=== PATIENT | male | born 1990 | race Caucasian/White ===

== ENCOUNTER 2016-10-19 13:16 | Emergency (ER) | payer OTHER ==
[~2016-10-19] VITALS: Ht 180.3 cm; Wt 105.8 kg
[~2016-10-19 13:16] MED LIST: ATARAX,VISTARIL25 MG PO; ZOFRAN4 MG PO
[2016-10-19 13:33] VITALS: BP 150/93
== END 2016-10-19 16:39 | disposition left against medical advice (07) ==
LOC: EME 13:16
DX: R07.9 Chest pain, unspecified (principal); R06.00 Dyspnea, unspecified; Z53.21 Procedure and treatment not carried out due to patient leaving prior to being seen by health care provider
CPT/HCPCS: 93005

== ENCOUNTER 2016-11-17 04:44 | Emergency (ER) | payer SELFPAY ==
[~2016-11-17] VITALS: Ht 180.3 cm; Wt 110.8 kg
[2016-11-17 05:24] LABS: HEMATOCRIT 47.6 % (38.0-50.0); MCH 29.1 PG (29.0-34.0); MCHC 33.8 G/DL (30.0-36.0); MCV 85.9 FL (86-99); MEAN PLAT.VOLUME 8.8 uM^3 (9.0-12.4); PLATELET COUNT 278 K/uL (156-360); RBC DIS.WIDTH-CV 11.5 % (11.8-14.6); RBC DIS.WIDTH-SD 36.2 % (39-53); RED BLOOD COUNT 5.54 M/uL (4.00-5.50); WHITE BLOOD COUNT 11.7 K/uL (4.1-10.2)
[2016-11-17] MEDS ORDERED: ZOFRAN4 MG PO (05:27)
[2016-11-17] MEDS ORDERED: NORCO 5/3251 TABLET PO (05:27)
[2016-11-17 05:50] LABS: CHLORIDE 103 mEq/L (99-109); POTASSIUM 3.7 mEq/L (3.7-5.4); SODIUM 140 mEq/L (136-147)
[2016-11-17 05:52] LABS: GLUCOSE 110 mg/dL (70-99)
[2016-11-17 05:53] LABS: ANION GAP 11 MEQ/L (2-14)
[2016-11-17 05:54] LABS: TOTAL BILIRUBIN 1.3 mg/dL (0.0-1.0)
[2016-11-17 05:55] LABS: ALKALINE PHOSPHATASE 71 IU/L (3-129)
[2016-11-17 05:56] LABS: GFR ESTIMATE (CALCULATED) > 59 mL/min/
[2016-11-17 05:57] LABS: UREA NITROGEN (BUN) 18 mg/dL (9-23)
[2016-11-17 05:59] LABS: LIPASE 44 U/L (1.0-51.0)
[2016-11-17 06:15] VITALS: BP 130/80
== END 2016-11-17 06:16 | disposition home or self-care (01) ==
LOC: EME 04:44
PROVIDERS: Physician Assistant
DX: K80.20 Calculus of gallbladder without cholecystitis without obstruction (principal); Z87.891 Personal history of nicotine dependence
CPT/HCPCS: 74176; 80053; 81003; 83690; 85027; 99281; 99284; J2270

== ENCOUNTER 2016-12-17 10:25 | Emergency (ER) | payer OTHER ==
[~2016-12-17] VITALS: Ht 180.3 cm; Wt 107.8 kg
[~2016-12-17 10:25] MED LIST changes: +NORCO 5/3251 TABLET PO
[2016-12-17] MEDS ORDERED: TYLENOL REGULA325 MG PO (11:35)
[2016-12-17] MEDS ORDERED: NAPROSYN500 MG PO (12:44)
[2016-12-17 13:03] VITALS: BP 135/78
== END 2016-12-17 13:04 | disposition home or self-care (01) ==
LOC: EME 10:25
DX: R51 Headache (principal); R07.9 Chest pain, unspecified; F43.9 Reaction to severe stress, unspecified; R00.0 Tachycardia, unspecified; Z87.891 Personal history of nicotine dependence
CPT/HCPCS: 93005; 99281; 99284; J1885

== ENCOUNTER 2016-12-19 07:00 | Emergency (ER) | payer OTHER ==
[~2016-12-19] VITALS: Ht 180.3 cm; Wt 107.8 kg
[~2016-12-19 07:00] MED LIST changes: +NAPROSYN500 MG PO; +TYLENOL REGULA325 MG PO
[2016-12-19 08:26] VITALS: BP 126/82
== END 2016-12-19 08:29 | disposition home or self-care (01) ==
LOC: EME 07:00
DX: G43.909 Migraine, unspecified, not intractable, without status migrainosus (principal); G44.209 Tension-type headache, unspecified, not intractable; Z87.891 Personal history of nicotine dependence
CPT/HCPCS: 99281; 99285; J1200; J1885; J2765

== ENCOUNTER 2016-12-20 02:22 | Emergency (ER) | payer OTHER ==
[~2016-12-20] VITALS: Ht 180.3 cm; Wt 108.8 kg
[2016-12-20 02:43] LABS: HEMATOCRIT 45.4 % (38.0-50.0); MCH 28.9 PG (29.0-34.0); MCHC 33.7 G/DL (30.0-36.0); MCV 85.7 FL (86-99); MEAN PLAT.VOLUME 8.6 uM^3 (9.0-12.4); PLATELET COUNT 248 K/uL (156-360); RBC DIS.WIDTH-CV 11.6 % (11.8-14.6); RBC DIS.WIDTH-SD 36.4 % (39-53); WHITE BLOOD COUNT 9.3 K/uL (4.1-10.2)
[2016-12-20 02:53] LABS: CHLORIDE 110 mEq/L (99-109); POTASSIUM 3.8 mEq/L (3.7-5.4); SODIUM 142 mEq/L (136-147)
[2016-12-20 02:56] LABS: GLUCOSE 118 mg/dL (70-99)
[2016-12-20 02:57] LABS: ANION GAP 9 MEQ/L (2-14)
[2016-12-20 02:58] LABS: TOTAL BILIRUBIN 1.8 mg/dL (0.0-1.0)
[2016-12-20 02:59] LABS: ALKALINE PHOSPHATASE 58 IU/L (3-129); GFR ESTIMATE (CALCULATED) > 59 mL/min/
[2016-12-20 03:00] LABS: UREA NITROGEN (BUN) 13 mg/dL (9-23)
[2016-12-20 03:08] LABS: ADD MIUA? YES; BILIRUBIN NEGATIVE; BLOOD SMALL; COLOR YELLOW ((YELLOW)); GLUCOSE (STRIP) NEGATIVE; KETONES NEGATIVE; LEUKOCYTES TRACE; NITRITE NEGATIVE; PROTEIN (STRIP) 100; SPECIFIC GRAVITY 1.006 (1.000-1.030); UROBILINOGEN 0.2 MG/DL (0.2-1.0)
[2016-12-20 03:22] LABS: BACTERIA NONE SEEN /HPF; EPITHELIAL CELLS RARE /HPF; MUCUS TRACE /LPF; UCUL ADDED? NO
[2016-12-20 03:24] LABS: LIPASE 35 U/L (1.0-51.0)
[2016-12-20 05:20] VITALS: BP 138/89
== END 2016-12-20 05:21 | disposition home or self-care (01) ==
LOC: EME 02:22
DX: R10.13 Epigastric pain (principal); K80.20 Calculus of gallbladder without cholecystitis without obstruction; Z87.891 Personal history of nicotine dependence
CPT/HCPCS: 76705; 80053; 81003; 83690; 85027; 99281; 99285

== ENCOUNTER 2016-12-22 11:02 | Emergency (ER) | payer OTHER ==
[~2016-12-22] VITALS: Ht 180.3 cm; Wt 109.4 kg
[2016-12-22] MEDS ORDERED: ATIVAN0.5 MG PO (15:17)
[2016-12-22 15:32] VITALS: BP 155/82
== END 2016-12-22 15:35 | disposition home or self-care (01) ==
LOC: EME 11:02
DX: F41.0 Panic disorder [episodic paroxysmal anxiety] (principal); F43.10 Post-traumatic stress disorder, unspecified; F31.9 Bipolar disorder, unspecified; R51 Headache; R03.0 Elevated blood-pressure reading, without diagnosis of hypertension; K80.20 Calculus of gallbladder without cholecystitis without obstruction; Z87.891 Personal history of nicotine dependence
CPT/HCPCS: 90832; 93005; 99281; 99284

== ENCOUNTER 2016-12-25 16:18 | Emergency (ER) | payer OTHER ==
[~2016-12-25] VITALS: Ht 180.3 cm; Wt 108.2 kg
[~2016-12-25 16:18] MED LIST changes: +ATIVAN0.5 MG PO
[2016-12-25 17:47] LABS: MCH 29.1 PG (29.0-34.0); MCHC 34.6 G/DL (30.0-36.0); MCV 84.2 FL (86-99); MEAN PLAT.VOLUME 8.6 uM^3 (9.0-12.4); PLATELET COUNT 295 K/uL (156-360); RBC DIS.WIDTH-CV 11.5 % (11.8-14.6); RBC DIS.WIDTH-SD 34.8 % (39-53); RED BLOOD COUNT 5.46 M/uL (4.00-5.50); WHITE BLOOD COUNT 8.6 K/uL (4.1-10.2)
[2016-12-25 18:03] LABS: CHLORIDE 104 mEq/L (99-109); MAGNESIUM 2.1 mg/dL (1.3-2.7); POTASSIUM 3.7 mEq/L (3.7-5.4); SODIUM 142 mEq/L (136-147)
[2016-12-25 18:04] LABS: GLUCOSE 89 mg/dL (70-99)
[2016-12-25 18:06] LABS: ANION GAP 14 MEQ/L (2-14)
[2016-12-25 18:08] LABS: GFR ESTIMATE (CALCULATED) 49 mL/min/
[2016-12-25 18:09] LABS: UREA NITROGEN (BUN) 17 mg/dL (9-23)
[2016-12-25 18:11] LABS: TROP-I INTERPRETATION NEGATIVE; TROPONIN-I < 0.01 ng/mL (0.0-0.30)
[2016-12-25 20:04] LABS: ADD MIUA? YES; BILIRUBIN NEGATIVE; BLOOD NEGATIVE; COLOR YELLOW ((YELLOW)); GLUCOSE (STRIP) NEGATIVE; KETONES NEGATIVE; LEUKOCYTES SMALL; NITRITE NEGATIVE; PROTEIN (STRIP) NEGATIVE; SPECIFIC GRAVITY 1.015 (1.000-1.030); UROBILINOGEN 0.2 MG/DL (0.2-1.0)
[2016-12-25 20:24] LABS: AMPHETAMINE NEGATIVE (500 ng/mL); BARBITURATES NEGATIVE (200 ng/mL); BENZODIAZEPINES PRESUMPTIVE POSITIVE (150 ng/mL); COCAINE NEGATIVE (150 ng/mL); INTERNAL CONTROLS VALID? YES; METHADONE NEGATIVE (200 ng/mL); METHAMPHETAMINE NEGATIVE (500 ng/mL); OPIATES (MORPHINE) NEGATIVE (100 ng/mL); OXYCODONE NEGATIVE (100 ng/mL); PHENCYCLIDINE NEGATIVE (25 ng/mL); PROPOXYPHENE NEGATIVE (300 ng/mL); THC CANNABINOIDS NEGATIVE (50 ng/mL); TRICYCLIC ANTIDEPRESSANTS NEGATIVE (300 ng/mL)
[2016-12-25 20:25] LABS: ADD MEDTOX COMMENT Y
[2016-12-25 20:36] LABS: TROP-I INTERPRETATION NEGATIVE; TROPONIN-I < 0.01 ng/mL (0.0-0.30)
[2016-12-25 20:39] LABS: BACTERIA NONE SEEN /HPF; EPITHELIAL CELLS RARE /HPF; MUCUS TRACE /LPF; RED BLOOD CELLS 0-5 /HPF (0-5); WHITE BLOOD CELLS 30-40 /HPF (0-5)
[2016-12-25 21:02] LABS: BENZODIAZEPINES QUANT VALUE 0 NG/ML
[2016-12-25 21:04] LABS: BENZODIAZEPINES, URINE SCREEN Negative (200 ng/mL)
[2016-12-25] MEDS ORDERED: INDOCIN50 MG PO (21:07)
[2016-12-25 21:35] VITALS: BP 122/67
== END 2016-12-25 21:36 | disposition home or self-care (01) ==
LOC: EME 16:18 → EXP 16:18
PROVIDERS: Physician Assistant
DX: R07.89 Other chest pain (principal); R03.0 Elevated blood-pressure reading, without diagnosis of hypertension; F41.9 Anxiety disorder, unspecified; Z87.891 Personal history of nicotine dependence
CPT/HCPCS: 71020; 80048; 81003; 83735; 84484; 84999; 85027; 93005; 99281; 99284

== ENCOUNTER 2016-12-31 06:22 | Emergency (ER) | payer OTHER ==
[~2016-12-31] VITALS: Ht 180.3 cm; Wt 108.7 kg
[~2016-12-31 06:22] MED LIST changes: +INDOCIN50 MG PO
[2016-12-31 07:13] LABS: ADD MIUA? YES; BILIRUBIN NEGATIVE; BLOOD NEGATIVE; COLOR YELLOW ((YELLOW)); GLUCOSE (STRIP) NEGATIVE; KETONES NEGATIVE; LEUKOCYTES SMALL; NITRITE NEGATIVE; PROTEIN (STRIP) NEGATIVE; SPECIFIC GRAVITY 1.016 (1.000-1.030); UROBILINOGEN 0.2 MG/DL (0.2-1.0)
[2016-12-31 07:16] LABS: HEMATOCRIT 47.1 % (38.0-50.0); MCH 28.8 PG (29.0-34.0); MCHC 33.3 G/DL (30.0-36.0); MCV 86.4 FL (86-99); MEAN PLAT.VOLUME 8.9 uM^3 (9.0-12.4); PLATELET COUNT 293 K/uL (156-360); RBC DIS.WIDTH-CV 11.5 % (11.8-14.6); RBC DIS.WIDTH-SD 36.2 % (39-53); RED BLOOD COUNT 5.45 M/uL (4.00-5.50); WHITE BLOOD COUNT 8.6 K/uL (4.1-10.2)
[2016-12-31 07:38] LABS: BACTERIA RARE /HPF; EPITHELIAL CELLS NONE SEEN /HPF; HYALINE CASTS 0-5 /LPF; MUCUS NONE SEEN /LPF; RED BLOOD CELLS 0-5 /HPF (0-5); UCUL ADDED? NO; WHITE BLOOD CELLS 30-40 /HPF (0-5)
[2016-12-31 07:47] LABS: ALKALINE PHOSPHATASE 67 IU/L (3-129); ANION GAP 9 MEQ/L (2-14); CHLORIDE 104 MEQ/L (99-109); GFR ESTIMATE (CALCULATED) > 59 mL/min/; GLUCOSE 104 mg/dL (70-99); LIPASE 47 U/L (1.0-51.0); POTASSIUM 4.5 MEQ/L (3.7-5.4); SAMPLE HEMOLYSIS CHECK 0; SAMPLE ICTERIC CHECK 0; SAMPLE LIPEMIA CHECK 0; SODIUM 140 MEQ/L (136-147); TOTAL BILIRUBIN 0.7 MG/DL (0.0-1.0); UREA NITROGEN (BUN) 20 mg/dL (9-23)
[2016-12-31] MEDS ORDERED: ZOFRAN4 MG PO (08:42)
[2016-12-31 08:51] VITALS: BP 140/90
== END 2016-12-31 09:04 | disposition home or self-care (01) ==
LOC: EME 06:22
PROVIDERS: Emergency Medicine
DX: K80.20 Calculus of gallbladder without cholecystitis without obstruction (principal); F43.10 Post-traumatic stress disorder, unspecified; F31.9 Bipolar disorder, unspecified; Z87.891 Personal history of nicotine dependence
CPT/HCPCS: 76705; 80048; 80076; 81003; 83690; 85027; 99281; 99285; J2405; J7030

== ENCOUNTER 2017-01-10 19:39 | Emergency (ER) | payer OTHER ==
[~2017-01-10] VITALS: Ht 180.3 cm; Wt 107.9 kg
[2017-01-10] MEDS ORDERED: ATARAX,VISTARIL50 MG PO (19:57)
[2017-01-10 20:04] VITALS: BP 134/78
== END 2017-01-10 20:04 | disposition home or self-care (01) ==
LOC: EME 19:39
DX: F41.9 Anxiety disorder, unspecified (principal); M54.2 Cervicalgia
CPT/HCPCS: 99281; 99283

== ENCOUNTER 2017-03-06 22:50 | Emergency (ER) | payer OTHER ==
[~2017-03-06] VITALS: Ht 180.3 cm; Wt 110.6 kg
[~2017-03-06 22:50] MED LIST changes: +ATARAX,VISTARIL50 MG PO
[2017-03-06 23:59] LABS: HEMATOCRIT 47.5 % (38.0-50.0); MCH 29.2 PG (29.0-34.0); MCHC 34.1 G/DL (30.0-36.0); MCV 85.7 FL (86-99); MEAN PLAT.VOLUME 8.9 uM^3 (9.0-12.4); PLATELET COUNT 296 K/uL (156-360); RBC DIS.WIDTH-CV 11.9 % (11.8-14.6); RBC DIS.WIDTH-SD 37.6 % (39-53); RED BLOOD COUNT 5.54 M/uL (4.00-5.50); WHITE BLOOD COUNT 8.6 K/uL (4.1-10.2)
[2017-03-07 00:17] LABS: CHLORIDE 104 mEq/L (99-109); SODIUM 141 mEq/L (136-147)
[2017-03-07 00:19] LABS: GLUCOSE 109 mg/dL (70-99)
[2017-03-07 00:20] LABS: ANION GAP 9 MEQ/L (2-14)
[2017-03-07 00:21] LABS: TOTAL BILIRUBIN 1.4 mg/dL (0.0-1.0)
[2017-03-07 00:22] LABS: ALKALINE PHOSPHATASE 74 IU/L (3-129)
[2017-03-07 00:23] LABS: GFR ESTIMATE (CALCULATED) > 59 mL/min/
[2017-03-07 00:24] LABS: UREA NITROGEN (BUN) 15 mg/dL (9-23)
[2017-03-07 00:26] LABS: LIPASE 46 U/L (1.0-51.0)
[2017-03-07 00:27] LABS: TROP-I INTERPRETATION NEGATIVE; TROPONIN-I < 0.01 ng/mL (0.0-0.30)
[2017-03-07] MEDS ORDERED: ATIVAN0.5 MG PO (00:54)
[2017-03-07 01:01] VITALS: BP 152/78
== END 2017-03-07 01:02 | disposition home or self-care (01) ==
LOC: EME 22:50
PROVIDERS: Physician Assistant
DX: R07.9 Chest pain, unspecified (principal); F41.9 Anxiety disorder, unspecified; R10.13 Epigastric pain; F43.10 Post-traumatic stress disorder, unspecified
CPT/HCPCS: 80053; 83690; 84484; 85027; 93005; 99281; 99284

== ENCOUNTER 2017-04-15 00:44 | Emergency (ER) | payer OTHER ==
[~2017-04-15] VITALS: Ht 180.3 cm; Wt 110.4 kg
[2017-04-15 01:18] LABS: HEMATOCRIT 47.8 % (38.0-50.0); MCH 29.4 PG (29.0-34.0); MCHC 34.5 G/DL (30.0-36.0); MCV 85.1 FL (86-99); MEAN PLAT.VOLUME 9.1 uM^3 (9.0-12.4); PLATELET COUNT 281 K/uL (156-360); RBC DIS.WIDTH-CV 11.3 % (11.8-14.6); RBC DIS.WIDTH-SD 34.9 % (39-53); RED BLOOD COUNT 5.62 M/uL (4.00-5.50); WHITE BLOOD COUNT 10.6 K/uL (4.1-10.2)
[2017-04-15 01:32] LABS: CHLORIDE 102 mEq/L (99-109); POTASSIUM 3.7 mEq/L (3.7-5.4); SODIUM 140 mEq/L (136-147)
[2017-04-15 01:35] LABS: GLUCOSE 107 mg/dL (70-99)
[2017-04-15 01:36] LABS: ANION GAP 13 MEQ/L (2-14)
[2017-04-15 01:37] LABS: TOTAL BILIRUBIN 1.1 mg/dL (0.0-1.0)
[2017-04-15 01:38] LABS: ALKALINE PHOSPHATASE 80 IU/L (3-129); GFR ESTIMATE (CALCULATED) > 59 mL/min/
[2017-04-15 01:39] LABS: UREA NITROGEN (BUN) 15 mg/dL (9-23)
[2017-04-15 01:42] LABS: LIPASE 52 U/L (1.0-51.0)
[2017-04-15 02:37] LABS: ADD MIUA? YES; BILIRUBIN NEGATIVE; BLOOD NEGATIVE; COLOR YELLOW ((YELLOW)); GLUCOSE (STRIP) NEGATIVE; KETONES NEGATIVE; LEUKOCYTES TRACE; NITRITE NEGATIVE; PROTEIN (STRIP) 30; SPECIFIC GRAVITY 1.024 (1.000-1.030); UROBILINOGEN 0.2 MG/DL (0.2-1.0)
[2017-04-15] MEDS ORDERED: ATIVAN0.5 MG PO (02:51)
[2017-04-15] MEDS ORDERED: ZOFRAN ODT4 MG PO (02:51)
[2017-04-15] MEDS ORDERED: PERCOCET 5/31 TABLET PO (02:51)
[2017-04-15 03:02] LABS: BACTERIA NONE SEEN /HPF; EPITHELIAL CELLS NONE SEEN /HPF; MUCUS TRACE /LPF; RED BLOOD CELLS 0-5 /HPF (0-5); UCUL ADDED? YES; WHITE BLOOD CELLS 20-30 /HPF (0-5)
[2017-04-15 03:26] VITALS: BP 137/91
== END 2017-04-15 03:28 | disposition home or self-care (01) ==
LOC: EME 00:44
DX: K80.20 Calculus of gallbladder without cholecystitis without obstruction (principal); F41.9 Anxiety disorder, unspecified; F43.10 Post-traumatic stress disorder, unspecified
CPT/HCPCS: 76705; 80053; 81003; 83690; 85027; 87086; 99281; 99285; J2270; J2405

== ENCOUNTER 2017-05-29 18:43 | Emergency (ER) | payer OTHER ==
[~2017-05-29] VITALS: Ht 180.3 cm; Wt 111.4 kg
[~2017-05-29 18:43] MED LIST changes: +PERCOCET 5/31 TABLET PO; +ZOFRAN ODT4 MG PO
[2017-05-29] MEDS ORDERED: ATIVAN0.5 MG PO (20:09)
[2017-05-29] MEDS ORDERED: NEXIUM40 MG PO (20:09)
[2017-05-29 20:25] VITALS: BP 167/104
== END 2017-05-29 20:30 | disposition home or self-care (01) ==
LOC: EME 18:43
DX: F43.9 Reaction to severe stress, unspecified (principal); K21.9 Gastro-esophageal reflux disease without esophagitis; F43.10 Post-traumatic stress disorder, unspecified; F31.9 Bipolar disorder, unspecified
CPT/HCPCS: 93005; 99281; 99284

== ENCOUNTER 2017-07-28 12:58 | Emergency (ER) | payer OTHER ==
[~2017-07-28] VITALS: Ht 180.3 cm; Wt 110.5 kg
[~2017-07-28 12:58] MED LIST changes: +NEXIUM40 MG PO
[2017-07-28 14:01] LABS: HEMATOCRIT 45.9 % (38.0-50.0); MCH 29.1 PG (29.0-34.0); MCHC 34.2 G/DL (30.0-36.0); MEAN PLAT.VOLUME 9.1 uM^3 (9.0-12.4); PLATELET COUNT 280 K/uL (156-360); RBC DIS.WIDTH-CV 11.3 % (11.8-14.6); RBC DIS.WIDTH-SD 34.7 % (39-53); WHITE BLOOD COUNT 7.4 K/uL (4.1-10.2)
[2017-07-28 14:12] LABS: CHLORIDE 107 mEq/L (99-109); POTASSIUM 3.7 mEq/L (3.7-5.4); SODIUM 139 mEq/L (136-147)
[2017-07-28 14:14] LABS: GLUCOSE 95 mg/dL (70-99)
[2017-07-28 14:15] LABS: ANION GAP 10 MEQ/L (2-14)
[2017-07-28 14:17] LABS: GFR ESTIMATE (CALCULATED) > 59 mL/min/
[2017-07-28 14:18] LABS: UREA NITROGEN (BUN) 18 mg/dL (9-23)
[2017-07-28 14:22] LABS: TROP-I INTERPRETATION NEGATIVE; TROPONIN-I < 0.01 ng/mL (0.0-0.30)
[2017-07-28 17:06] LABS: TROP-I INTERPRETATION NEGATIVE; TROPONIN-I < 0.01 ng/mL (0.0-0.30)
[2017-07-28 17:24] VITALS: BP 145/89
== END 2017-07-28 17:30 | disposition home or self-care (01) ==
LOC: EME 12:58
PROVIDERS: Physician Assistant
DX: R07.89 Other chest pain (principal); F41.9 Anxiety disorder, unspecified; F31.9 Bipolar disorder, unspecified; F43.10 Post-traumatic stress disorder, unspecified
CPT/HCPCS: 71020; 80048; 84484; 85027; 93005; 99281; 99284

== ENCOUNTER 2017-08-21 00:55 | Emergency (ER) | payer OTHER ==
[~2017-08-21] VITALS: Ht 180.3 cm; Wt 112.3 kg
[~2017-08-21 00:55] MED LIST changes: +TUMS500 MG PO; +TYLENOL EXTRA500 MG PO
[2017-08-21 02:09] VITALS: BP 151/107
== END 2017-08-21 02:49 | disposition home or self-care (01) ==
LOC: EME 00:55
DX: R53.1 Weakness (principal); R00.2 Palpitations; R42 Dizziness and giddiness; R07.9 Chest pain, unspecified; R00.0 Tachycardia, unspecified; Z87.891 Personal history of nicotine dependence
CPT/HCPCS: 93005; 99281; 99284

== ENCOUNTER 2017-08-26 16:46 | Emergency (ER) | payer OTHER ==
[~2017-08-26] VITALS: Ht 180.3 cm; Wt 110.4 kg
[2017-08-26 17:41] LABS: HEMATOCRIT 48.9 % (38.0-50.0); HEMOGLOBIN 16.7 G/DL (12.5-16.6); MCH 29.2 PG (29.0-34.0); MCHC 34.2 G/DL (30.0-36.0); MCV 85.6 FL (86-99); PLATELET COUNT 281 K/uL (156-360); RBC DIS.WIDTH-CV 11.5 % (11.8-14.6); RBC DIS.WIDTH-SD 35.8 % (39-53); RED BLOOD COUNT 5.71 M/uL (4.00-5.50)
[2017-08-26 17:54] LABS: CHLORIDE 103 mEq/L (99-109); POTASSIUM 3.9 mEq/L (3.7-5.4); SODIUM 139 mEq/L (136-147)
[2017-08-26 17:55] LABS: GLUCOSE 109 mg/dL (70-99)
[2017-08-26 17:59] LABS: CREATININE 1.2 mg/dL (0.6-1.3); GFR ESTIMATE (CALCULATED) > 59 mL/min/ (58.99-99999)
[2017-08-26 18:00] LABS: UREA NITROGEN (BUN) 16 mg/dL (9-23)
[2017-08-26 18:05] LABS: TROP-I INTERPRETATION NEGATIVE; TROPONIN-I < 0.01 ng/mL (0.0-0.30)
[2017-08-26] MEDS ORDERED: ATIVAN0.5 MG PO (19:09)
[2017-08-26 19:29] VITALS: BP 132/96
== END 2017-08-26 19:30 | disposition home or self-care (01) ==
LOC: EME 16:46
DX: F41.0 Panic disorder [episodic paroxysmal anxiety] (principal); J45.909 Unspecified asthma, uncomplicated; F43.10 Post-traumatic stress disorder, unspecified; F32.9 Major depressive disorder, single episode, unspecified; Z87.891 Personal history of nicotine dependence
CPT/HCPCS: 80048; 84484; 85027; 99281; 99283

== ENCOUNTER 2017-09-08 02:09 | Emergency (ER) | payer OTHER ==
[~2017-09-08] VITALS: Ht 180.3 cm; Wt 109.0 kg
[2017-09-08 02:51] LABS: HEMATOCRIT 46.7 % (38.0-50.0); HEMOGLOBIN 16.2 G/DL (12.5-16.6); MCH 29.1 PG (29.0-34.0); MCHC 34.7 G/DL (30.0-36.0); PLATELET COUNT 304 K/uL (156-360); RBC DIS.WIDTH-CV 11.2 % (11.8-14.6); RBC DIS.WIDTH-SD 34.4 % (39-53); RED BLOOD COUNT 5.56 M/uL (4.00-5.50); WHITE BLOOD COUNT 8.6 K/uL (4.1-10.2)
[2017-09-08 03:01] LABS: CHLORIDE 104 mEq/L (99-109); POTASSIUM 3.6 mEq/L (3.7-5.4); SODIUM 137 mEq/L (136-147)
[2017-09-08 03:03] LABS: GLUCOSE 115 mg/dL (70-99)
[2017-09-08 03:07] LABS: CREATININE 1.2 mg/dL (0.6-1.3); GFR ESTIMATE (CALCULATED) > 59 mL/min/ (58.99-99999)
[2017-09-08 03:08] LABS: UREA NITROGEN (BUN) 16 mg/dL (9-23)
[2017-09-08 03:13] LABS: TROP-I INTERPRETATION NEGATIVE; TROPONIN-I < 0.01 ng/mL (0.0-0.30)
[2017-09-08 06:32] LABS: TROP-I INTERPRETATION NEGATIVE; TROPONIN-I < 0.01 ng/mL (0.0-0.30)
[2017-09-08 07:13] VITALS: BP 141/96
== END 2017-09-08 07:14 | disposition home or self-care (01) ==
LOC: EME 02:09
DX: R07.9 Chest pain, unspecified (principal); F41.0 Panic disorder [episodic paroxysmal anxiety]; J45.909 Unspecified asthma, uncomplicated; F32.9 Major depressive disorder, single episode, unspecified; F43.10 Post-traumatic stress disorder, unspecified; Z87.891 Personal history of nicotine dependence
CPT/HCPCS: 71046; 80048; 84484; 85027; 93005; 99281; 99283

== ENCOUNTER 2017-09-13 14:08 | Emergency (ER) | payer OTHER ==
[~2017-09-13] VITALS: Ht 180.3 cm; Wt 110.0 kg
[2017-09-13 16:58] LABS: HEMOGLOBIN 16.4 G/DL (12.5-16.6); MCH 29.1 PG (29.0-34.0); MCHC 34.9 G/DL (30.0-36.0); MCV 83.5 FL (86-99); PLATELET COUNT 321 K/uL (156-360); RBC DIS.WIDTH-CV 11.2 % (11.8-14.6); RBC DIS.WIDTH-SD 34.1 % (39-53); RED BLOOD COUNT 5.63 M/uL (4.00-5.50); WHITE BLOOD COUNT 13.1 K/uL (4.1-10.2)
[2017-09-13 17:06] LABS: ALBUMIN 4.6 g/dL (3.2-4.8)
[2017-09-13 17:07] LABS: CHLORIDE 104 mEq/L (99-109); POTASSIUM 3.8 mEq/L (3.7-5.4); SODIUM 141 mEq/L (136-147)
[2017-09-13 17:09] LABS: GLUCOSE 100 mg/dL (70-99); TOTAL PROTEIN 8.4 g/dL (6.4-8.3)
[2017-09-13 17:11] LABS: TOTAL BILIRUBIN 1.5 mg/dL (0.0-1.0)
[2017-09-13 17:12] LABS: ALKALINE PHOSPHATASE 72 IU/L (3-129); SERUM ETHYL ALCOHOL < 10 mg/dL
[2017-09-13 17:13] LABS: CREATININE 1.1 mg/dL (0.6-1.3); GFR ESTIMATE (CALCULATED) > 59 mL/min/ (58.99-99999)
[2017-09-13 17:14] LABS: AST (GOT) 32 IU/L (2-34); UREA NITROGEN (BUN) 19 mg/dL (9-23)
[2017-09-13 17:16] LABS: ALT (GPT) 74 IU/L (3-49)
[2017-09-13 17:36] LABS: AMPHETAMINE NEGATIVE (500 ng/mL); BENZODIAZEPINES NEGATIVE (150 ng/mL); COCAINE NEGATIVE (150 ng/mL); METHAMPHETAMINE NEGATIVE (500 ng/mL); OPIATES (MORPHINE) NEGATIVE (100 ng/mL); PHENCYCLIDINE NEGATIVE (25 ng/mL); THC CANNABINOIDS NEGATIVE (50 ng/mL); TRICYCLIC ANTIDEPRESSANTS NEGATIVE (300 ng/mL)
[2017-09-13 17:37] LABS: BARBITURATES NEGATIVE (200 ng/mL); BUPRENORPHINE NEGATIVE (10 ng/mL); METHADONE NEGATIVE (200 ng/mL); OXYCODONE PRESUMPTIVE POSITIVE (100 ng/mL); PROPOXYPHENE NEGATIVE (300 ng/mL)
[2017-09-13 19:49] LABS: APPEARANCE CLEAR ((CLEAR)); BILIRUBIN NEGATIVE; BLOOD NEGATIVE; COLOR YELLOW ((YELLOW)); GLUCOSE (STRIP) NEGATIVE; KETONES NEGATIVE; LEUKOCYTES NEGATIVE; NITRITE NEGATIVE; PROTEIN (STRIP) NEGATIVE; UROBILINOGEN 0.2 MG/DL (0.2-1.0)
[2017-09-13] MEDS ORDERED: CELEXA20 MG PO (21:12)
[2017-09-13 21:38] VITALS: BP 136/90
== END 2017-09-13 21:40 | disposition home or self-care (01) ==
LOC: EME 14:08
PROVIDERS: Emergency Medicine
DX: F43.10 Post-traumatic stress disorder, unspecified (principal); F40.00 Agoraphobia, unspecified; F32.9 Major depressive disorder, single episode, unspecified; J45.909 Unspecified asthma, uncomplicated
CPT/HCPCS: 71046; 80053; 81003; 85027; 90839; 99281; 99283; G0480

== ENCOUNTER 2017-09-15 22:47 | Emergency (ER) | payer OTHER ==
[~2017-09-15] VITALS: Ht 180.3 cm; Wt 109.1 kg
[~2017-09-15 22:47] MED LIST changes: +CELEXA20 MG PO
[2017-09-15 23:34] LABS: BASOPHIL (%) 0.8 % (0-1); BASOPHIL COUNT 0.1 K/uL (0-0.1); EOSINOPHIL (%) 4.5 % (0-5); EOSINOPHIL COUNT 0.4 K/uL (0-0.3); HEMATOCRIT 45.6 % (38.0-50.0); IMMATURE GRANULOCYTE (%) 0.3 % (0.0-0.7); LYMPHOCYTE COUNT 3.6 K/uL (1.0-2.8); MCHC 35.1 G/DL (30.0-36.0); MCV 82.6 FL (86-99); MONOCYTE (%) 7.8 % (3-12); MONOCYTE COUNT 0.6 K/uL (0-0.8); NEUTROPHIL (%) 41.6 % (45-76); NEUTROPHIL COUNT 3.3 K/uL (1.8-6.4); PLATELET COUNT 300 K/uL (156-360); RBC DIS.WIDTH-CV 11.1 % (11.8-14.6); RBC DIS.WIDTH-SD 33.1 % (39-53); RED BLOOD COUNT 5.52 M/uL (4.00-5.50)
[2017-09-15 23:51] LABS: D-DIMER ELISA < 150.00 ng/mLDDU (<230)
[2017-09-15 23:53] LABS: ALBUMIN 4.6 g/dL (3.2-4.8); CHLORIDE 104 mEq/L (99-109); POTASSIUM 3.5 mEq/L (3.7-5.4); SODIUM 137 mEq/L (136-147)
[2017-09-15 23:55] LABS: GLUCOSE 126 mg/dL (70-99); TOTAL PROTEIN 8.3 g/dL (6.4-8.3)
[2017-09-15 23:59] LABS: ALKALINE PHOSPHATASE 75 IU/L (3-129); GFR ESTIMATE (CALCULATED) > 59 mL/min/ (58.99-99999)
[2017-09-16] LABS: AST (GOT) 31 IU/L (2-34); DIRECT BILIRUBIN 0.3 mg/dL (0.0-0.3); UREA NITROGEN (BUN) 10 mg/dL (9-23)
[2017-09-16 00:01] LABS: TROP-I INTERPRETATION NEGATIVE; TROPONIN-I < 0.01 ng/mL (0.0-0.30)
[2017-09-16 00:02] LABS: ALT (GPT) 107 IU/L (3-49); LIPASE 43 U/L (1.0-51.0)
[2017-09-16 01:05] VITALS: BP 111/71
== END 2017-09-16 01:06 | disposition home or self-care (01) ==
LOC: EME → EDBD 22:47 → EME 22:47
PROVIDERS: Emergency Medicine
DX: R07.9 Chest pain, unspecified (principal); F41.9 Anxiety disorder, unspecified; M54.9 Dorsalgia, unspecified; R10.9 Unspecified abdominal pain; R00.2 Palpitations; R00.0 Tachycardia, unspecified; Z87.891 Personal history of nicotine dependence
CPT/HCPCS: 71046; 80048; 80076; 83690; 84484; 85025; 85379; 93005; 99281; 99285

== ENCOUNTER 2017-09-17 13:57 | Emergency (ER) | payer OTHER ==
[~2017-09-17] VITALS: Ht 180.3 cm; Wt 108.0 kg
[2017-09-17 14:41] LABS: HEMATOCRIT 46.4 % (38.0-50.0); HEMOGLOBIN 16.3 G/DL (12.5-16.6); MCH 29.3 PG (29.0-34.0); MCHC 35.1 G/DL (30.0-36.0); MCV 83.5 FL (86-99); PLATELET COUNT 318 K/uL (156-360); RBC DIS.WIDTH-CV 11.3 % (11.8-14.6); RED BLOOD COUNT 5.56 M/uL (4.00-5.50); WHITE BLOOD COUNT 10.4 K/uL (4.1-10.2)
[2017-09-17 14:50] LABS: APPEARANCE CLEAR ((CLEAR)); BILIRUBIN NEGATIVE; BLOOD NEGATIVE; COLOR YELLOW ((YELLOW)); GLUCOSE (STRIP) NEGATIVE; KETONES NEGATIVE; LEUKOCYTES NEGATIVE; NITRITE NEGATIVE; PROTEIN (STRIP) NEGATIVE; UCUL ADDED? NO; UROBILINOGEN 0.2 MG/DL (0.2-1.0)
[2017-09-17 14:51] LABS: ALBUMIN 4.7 g/dL (3.2-4.8); CHLORIDE 104 mEq/L (99-109); POTASSIUM 3.9 mEq/L (3.7-5.4); SODIUM 138 mEq/L (136-147)
[2017-09-17 14:53] LABS: GLUCOSE 112 mg/dL (70-99)
[2017-09-17 14:54] LABS: TOTAL PROTEIN 8.7 g/dL (6.4-8.3)
[2017-09-17 14:57] LABS: ALKALINE PHOSPHATASE 75 IU/L (3-129); CREATININE 1.1 mg/dL (0.6-1.3); GFR ESTIMATE (CALCULATED) > 59 mL/min/ (58.99-99999)
[2017-09-17 14:58] LABS: UREA NITROGEN (BUN) 11 mg/dL (9-23)
[2017-09-17 15:00] LABS: ALT (GPT) 77 IU/L (3-49)
[2017-09-17 15:02] LABS: AST (GOT) 14 IU/L (2-34)
[2017-09-17 15:14] LABS: LIPASE 45 U/L (1.0-51.0)
[2017-09-17 16:55] VITALS: BP 142/105
== END 2017-09-17 16:55 | disposition home or self-care (01) ==
LOC: EME 13:57
DX: K80.20 Calculus of gallbladder without cholecystitis without obstruction (principal); J45.909 Unspecified asthma, uncomplicated; F32.9 Major depressive disorder, single episode, unspecified; F43.10 Post-traumatic stress disorder, unspecified; Z87.891 Personal history of nicotine dependence
CPT/HCPCS: 80053; 81003; 83690; 85027; 99281; 99284

== ENCOUNTER 2017-09-26 05:28 | Emergency (ER) | payer OTHER ==
[~2017-09-26] VITALS: Ht 180.3 cm; Wt 111.0 kg
[2017-09-26 07:38] LABS: BASOPHIL (%) 0.6 % (0-1); BASOPHIL COUNT 0.1 K/uL (0-0.1); EOSINOPHIL (%) 4.6 % (0-5); EOSINOPHIL COUNT 0.4 K/uL (0-0.3); HEMATOCRIT 44.2 % (38.0-50.0); HEMOGLOBIN 15.1 G/DL (12.5-16.6); IMMATURE GRANULOCYTE (%) 0.3 % (0.0-0.7); LYMPHOCYTE (%) 33.4 % (15-42); LYMPHOCYTE COUNT 2.6 K/uL (1.0-2.8); MCH 29.3 PG (29.0-34.0); MCHC 34.2 G/DL (30.0-36.0); MCV 85.7 FL (86-99); MONOCYTE (%) 8.1 % (3-12); MONOCYTE COUNT 0.6 K/uL (0-0.8); NEUTROPHIL COUNT 4.2 K/uL (1.8-6.4); PLATELET COUNT 248 K/uL (156-360); RBC DIS.WIDTH-CV 11.9 % (11.8-14.6); RBC DIS.WIDTH-SD 37.3 % (39-53); RED BLOOD COUNT 5.16 M/uL (4.00-5.50); WHITE BLOOD COUNT 7.8 K/uL (4.1-10.2)
[2017-09-26 08:10] LABS: ALBUMIN 4.1 G/DL (3.2-4.8); ALKALINE PHOSPHATASE 73 IU/L (3-129); ALT (GPT) 117 IU/L (3-49); AST (GOT) 26 IU/L (2-34); CHLORIDE 103 MEQ/L (99-109); GFR ESTIMATE (CALCULATED) > 59 mL/min/ (58.99-99999); GLUCOSE 114 mg/dL (70-99); LIPASE 35 U/L (1.0-51.0); POTASSIUM 4.2 MEQ/L (3.7-5.4); SODIUM 136 MEQ/L (136-147); TOTAL BILIRUBIN 0.9 MG/DL (0.0-1.0); TOTAL PROTEIN 7.5 G/DL (6.4-8.3); UREA NITROGEN (BUN) 13 mg/dL (9-23)
[2017-09-26 08:38] VITALS: BP 130/79
== END 2017-09-26 08:40 | disposition home or self-care (01) ==
LOC: EME 05:28
PROVIDERS: Physician Assistant
DX: K80.20 Calculus of gallbladder without cholecystitis without obstruction (principal); R10.11 Right upper quadrant pain; M54.5 Low back pain; R11.0 Nausea; J45.909 Unspecified asthma, uncomplicated; F32.9 Major depressive disorder, single episode, unspecified; F41.9 Anxiety disorder, unspecified; Z87.891 Personal history of nicotine dependence; Z79.891 Long term (current) use of opiate analgesic; F43.10 Post-traumatic stress disorder, unspecified
CPT/HCPCS: 80053; 83690; 85025; 99281; 99284

== ENCOUNTER 2017-10-06 03:27 | Emergency (ER) | payer OTHER ==
[~2017-10-06] VITALS: Ht 180.3 cm; Wt 110.2 kg
[2017-10-06 04:36] LABS: BASOPHIL (%) 0.6 % (0-1); BASOPHIL COUNT 0.1 K/uL (0-0.1); EOSINOPHIL (%) 4.4 % (0-5); EOSINOPHIL COUNT 0.4 K/uL (0-0.3); HEMATOCRIT 47.1 % (38.0-50.0); HEMOGLOBIN 16.3 G/DL (12.5-16.6); IMMATURE GRANULOCYTE (%) 0.4 % (0.0-0.7); LYMPHOCYTE (%) 29.6 % (15-42); LYMPHOCYTE COUNT 2.5 K/uL (1.0-2.8); MCH 29.3 PG (29.0-34.0); MCHC 34.6 G/DL (30.0-36.0); MCV 84.7 FL (86-99); MONOCYTE (%) 7.6 % (3-12); MONOCYTE COUNT 0.6 K/uL (0-0.8); NEUTROPHIL (%) 57.4 % (45-76); NEUTROPHIL COUNT 4.9 K/uL (1.8-6.4); PLATELET COUNT 271 K/uL (156-360); RBC DIS.WIDTH-CV 11.9 % (11.8-14.6); RBC DIS.WIDTH-SD 36.4 % (39-53); RED BLOOD COUNT 5.56 M/uL (4.00-5.50); WHITE BLOOD COUNT 8.4 K/uL (4.1-10.2)
[2017-10-06 04:40] LABS: CHLORIDE 102 mEq/L (99-109); D-DIMER ELISA < 150.00 ng/mLDDU (<230)
[2017-10-06 04:41] LABS: POTASSIUM 3.9 mEq/L (3.7-5.4); SODIUM 139 mEq/L (136-147)
[2017-10-06 04:42] LABS: GLUCOSE 104 mg/dL (70-99)
[2017-10-06 04:46] LABS: CREATININE 1.1 mg/dL (0.6-1.3); GFR ESTIMATE (CALCULATED) > 59 mL/min/ (58.99-99999)
[2017-10-06 04:47] LABS: UREA NITROGEN (BUN) 19 mg/dL (9-23)
[2017-10-06 04:53] LABS: TROP-I INTERPRETATION NEGATIVE; TROPONIN-I < 0.01 ng/mL (0.0-0.30)
[2017-10-06 05:35] VITALS: BP 126/84
[2017-10-08] MEDS ORDERED: CELEXA20 MG PO (14:34)
== END 2017-10-06 05:38 | disposition home or self-care (01) ==
LOC: EME 03:27
PROVIDERS: Emergency Medicine
DX: F41.1 Generalized anxiety disorder (principal); F43.10 Post-traumatic stress disorder, unspecified; F32.9 Major depressive disorder, single episode, unspecified; Z87.891 Personal history of nicotine dependence
CPT/HCPCS: 80048; 84484; 85025; 85379; 93005; 99281; 99285

== ENCOUNTER 2017-10-15 13:26 | Emergency (ER) | payer OTHER ==
[~2017-10-15] VITALS: Ht 180.3 cm; Wt 109.8 kg
[2017-10-15 14:45] LABS: APPEARANCE CLEAR ((CLEAR)); BILIRUBIN NEGATIVE; BLOOD NEGATIVE; COLOR STRAW ((YELLOW)); GLUCOSE (STRIP) NEGATIVE; KETONES NEGATIVE; LEUKOCYTES NEGATIVE; NITRITE NEGATIVE; PROTEIN (STRIP) NEGATIVE; SPECIFIC GRAVITY 1.006 (1.000-1.030); UCUL ADDED? NO; UROBILINOGEN 0.2 MG/DL (0.2-1.0)
[2017-10-15 14:58] LABS: HEMATOCRIT 44.4 % (38.0-50.0); HEMOGLOBIN 15.5 G/DL (12.5-16.6); MCH 29.5 PG (29.0-34.0); MCHC 34.9 G/DL (30.0-36.0); MCV 84.6 FL (86-99); PLATELET COUNT 322 K/uL (156-360); RBC DIS.WIDTH-CV 11.8 % (11.8-14.6); RBC DIS.WIDTH-SD 35.8 % (39-53); RED BLOOD COUNT 5.25 M/uL (4.00-5.50); WHITE BLOOD COUNT 8.9 K/uL (4.1-10.2)
[2017-10-15 15:13] LABS: CHLORIDE 103 mEq/L (99-109); POTASSIUM 3.6 mEq/L (3.7-5.4); SODIUM 140 mEq/L (136-147)
[2017-10-15 15:14] LABS: GLUCOSE 110 mg/dL (70-99)
[2017-10-15 15:18] LABS: CREATININE 1.2 mg/dL (0.6-1.3); GFR ESTIMATE (CALCULATED) > 59 mL/min/ (58.99-99999)
[2017-10-15 15:19] LABS: UREA NITROGEN (BUN) 10 mg/dL (9-23)
[2017-10-15 15:21] LABS: LIPASE 29 U/L (1.0-51.0)
[2017-10-15 15:53] LABS: ALBUMIN 4.6 g/dL (3.2-4.8)
[2017-10-15 15:55] LABS: TOTAL PROTEIN 8.1 g/dL (6.4-8.3)
[2017-10-15 15:57] LABS: TOTAL BILIRUBIN 1.6 mg/dL (0.0-1.0)
[2017-10-15 15:58] LABS: ALKALINE PHOSPHATASE 66 IU/L (3-129)
[2017-10-15 16:01] LABS: ALT (GPT) 42 IU/L (3-49); AST (GOT) 13 IU/L (2-34); DIRECT BILIRUBIN 0.5 mg/dL (0.0-0.3)
[2017-10-15] MEDS ORDERED: PEPCID20 MG PO (18:31)
[2017-10-15 18:57] VITALS: BP 145/82
== END 2017-10-15 18:59 | disposition home or self-care (01) ==
LOC: EME 13:26
PROVIDERS: Physician Assistant Medical
DX: R10.13 Epigastric pain (principal); R10.12 Left upper quadrant pain; K80.20 Calculus of gallbladder without cholecystitis without obstruction; F41.9 Anxiety disorder, unspecified; F32.9 Major depressive disorder, single episode, unspecified; F43.10 Post-traumatic stress disorder, unspecified; Z87.891 Personal history of nicotine dependence
CPT/HCPCS: 76705; 80048; 80076; 81003; 83690; 85027; 87210; 99281; 99284; J1885

== ENCOUNTER 2017-10-26 11:09 | Day surgery (SDC) | payer OTHER ==
[~2017-10-26] VITALS: Ht 180.3 cm; Wt 107.5 kg
[~2017-10-26 11:09] MED LIST changes: +PEPCID20 MG PO
[2017-10-26 11:29] VITALS: BP 137/86
[2017-10-26] MEDS ORDERED: ULTRAM50 MG PO (16:11)
[2017-10-26 16:49] VITALS: BP 146/86
[2017-10-26 17:40] VITALS: BP 132/77
== END 2017-10-26 17:48 | disposition home or self-care (01) ==
LOC: SDC 11:09
PROC: 0FT44ZZ Resection of Gallbladder, Percutaneous Endoscopic Approach (ICD-10-PCS; principal; 2017-10-26)
DX: K80.10 Calculus of gallbladder with chronic cholecystitis without obstruction (principal); K21.9 Gastro-esophageal reflux disease without esophagitis; F41.9 Anxiety disorder, unspecified; Z80.0 Family history of malignant neoplasm of digestive organs; Z82.49 Family history of ischemic heart disease and other diseases of the circulatory system; Z87.891 Personal history of nicotine dependence
CPT/HCPCS: 88304; J0131; J0690; J1100; J1170; J2405; J2765; J3010

== ENCOUNTER 2017-10-28 01:43 | Emergency (ER) | payer OTHER ==
[~2017-10-28] VITALS: Ht 180.3 cm; Wt 112.4 kg
[~2017-10-28 01:43] MED LIST changes: +ULTRAM50 MG PO
[2017-10-28 03:02] LABS: HEMATOCRIT 40.1 % (38.0-50.0); HEMOGLOBIN 13.7 G/DL (12.5-16.6); MCH 29.7 PG (29.0-34.0); MCHC 34.2 G/DL (30.0-36.0); PLATELET COUNT 229 K/uL (156-360); RBC DIS.WIDTH-CV 11.9 % (11.8-14.6); RBC DIS.WIDTH-SD 38.1 % (39-53); RED BLOOD COUNT 4.61 M/uL (4.00-5.50); WHITE BLOOD COUNT 10.8 K/uL (4.1-10.2)
[2017-10-28 03:11] LABS: ALBUMIN 4.4 g/dL (3.2-4.8); CHLORIDE 106 mEq/L (99-109); POTASSIUM 3.8 mEq/L (3.7-5.4); SODIUM 142 mEq/L (136-147)
[2017-10-28 03:13] LABS: GLUCOSE 99 mg/dL (70-99)
[2017-10-28 03:14] LABS: TOTAL PROTEIN 7.4 g/dL (6.4-8.3)
[2017-10-28 03:15] LABS: TOTAL BILIRUBIN 0.8 mg/dL (0.0-1.0)
[2017-10-28 03:17] LABS: ALKALINE PHOSPHATASE 88 IU/L (3-129); CREATININE 1.2 mg/dL (0.6-1.3); GFR ESTIMATE (CALCULATED) > 59 mL/min/ (58.99-99999)
[2017-10-28 03:18] LABS: UREA NITROGEN (BUN) 16 mg/dL (9-23)
[2017-10-28 03:19] LABS: AST (GOT) 39 IU/L (2-34)
[2017-10-28 03:20] LABS: ALT (GPT) 106 IU/L (3-49); LIPASE 40 U/L (1.0-51.0)
[2017-10-28] MEDS ORDERED: BENADRYL50 MG PO (04:04)
[2017-10-28 04:11] VITALS: BP 146/95
== END 2017-10-28 04:11 | disposition home or self-care (01) ==
LOC: EME 01:43
PROVIDERS: Emergency Medicine
DX: L30.9 Dermatitis, unspecified (principal); R74.0 Nonspecific elevation of levels of transaminase and lactic acid dehydrogenase [LDH]; Z90.49 Acquired absence of other specified parts of digestive tract; F43.10 Post-traumatic stress disorder, unspecified; F32.9 Major depressive disorder, single episode, unspecified; F41.9 Anxiety disorder, unspecified
CPT/HCPCS: 80053; 83690; 85027; 99281; 99284

== ENCOUNTER 2017-11-09 21:20 | Emergency (ER) | payer OTHER ==
[~2017-11-09] VITALS: Ht 180.3 cm; Wt 109.1 kg
[~2017-11-09 21:20] MED LIST changes: +BENADRYL50 MG PO
[2017-11-09 22:24] LABS: BASOPHIL (%) 0.6 % (0-1); BASOPHIL COUNT 0.1 K/uL (0-0.1); EOSINOPHIL (%) 3.4 % (0-5); EOSINOPHIL COUNT 0.4 K/uL (0-0.3); HEMOGLOBIN 15.3 G/DL (12.5-16.6); IMMATURE GRANULOCYTE (%) 0.2 % (0.0-0.7); LYMPHOCYTE (%) 26.9 % (15-42); LYMPHOCYTE COUNT 3.4 K/uL (1.0-2.8); MCH 29.1 PG (29.0-34.0); MCV 85.6 FL (86-99); MONOCYTE (%) 6.2 % (3-12); MONOCYTE COUNT 0.8 K/uL (0-0.8); NEUTROPHIL (%) 62.7 % (45-76); NEUTROPHIL COUNT 7.9 K/uL (1.8-6.4); RBC DIS.WIDTH-CV 11.8 % (11.8-14.6); RBC DIS.WIDTH-SD 36.4 % (39-53); RED BLOOD COUNT 5.26 M/uL (4.00-5.50); WHITE BLOOD COUNT 12.5 K/uL (4.1-10.2)
[2017-11-09 22:27] LABS: PLATELET COUNT 361 K/uL (156-360)
[2017-11-09 22:50] LABS: ALBUMIN 4.5 g/dL (3.2-4.8); CHLORIDE 105 mEq/L (99-109); POTASSIUM 3.7 mEq/L (3.7-5.4); SODIUM 139 mEq/L (136-147)
[2017-11-09 22:52] LABS: GLUCOSE 106 mg/dL (70-99); TOTAL PROTEIN 8.5 g/dL (6.4-8.3)
[2017-11-09 22:53] LABS: TROP-I INTERPRETATION NEGATIVE; TROPONIN-I < 0.01 ng/mL (0.0-0.30)
[2017-11-09 22:54] LABS: TOTAL BILIRUBIN 1.4 mg/dL (0.0-1.0)
[2017-11-09 22:56] LABS: ALKALINE PHOSPHATASE 103 IU/L (3-129); CREATININE 1.2 mg/dL (0.6-1.3); GFR ESTIMATE (CALCULATED) > 59 mL/min/ (58.99-99999)
[2017-11-09 22:57] LABS: AST (GOT) 20 IU/L (2-34); UREA NITROGEN (BUN) 21 mg/dL (9-23)
[2017-11-09 22:59] LABS: ALT (GPT) 111 IU/L (3-49)
[2017-11-09 23:04] LABS: D-DIMER ELISA < 150.00 ng/mLDDU (<230)
[2017-11-10 00:05] VITALS: BP 118/80
== END 2017-11-10 00:11 | disposition home or self-care (01) ==
LOC: EME 21:20
PROVIDERS: Emergency Medicine
DX: R07.89 Other chest pain (principal); M79.602 Pain in left arm; R06.02 Shortness of breath; R20.2 Paresthesia of skin; M54.9 Dorsalgia, unspecified; Z98.890 Other specified postprocedural states; Z90.49 Acquired absence of other specified parts of digestive tract
CPT/HCPCS: 71046; 80053; 81003; 84484; 85025; 85379; 93005; 99281; 99285